=== PATIENT | male | born 1945 | race Hispanic/Latino ===

== ENCOUNTER → 2018-06-23 | Outpatient (CLI) | payer OTHER ==
[~2018-06-23] MED LIST: AMIO200T5 PO; GLIP5TAB11 PO; LISI2.5T2 PO; METF-446 PO; RIVA20TA PO; SIMV20TA6 PO
== END | disposition home or self-care (01) ==
LOC: RAH 13:54
PROVIDERS: ATTEND Internal Medicine Cardiovascular Disease
DX: I70.90 Unspecified atherosclerosis (principal); M47.814 Spondylosis without myelopathy or radiculopathy, thoracic region
CPT/HCPCS: 71250

== ENCOUNTER 2018-09-14 05:58 | Day surgery (SDC) | payer OTHER ==
[2018-09-12 12:20] VITALS: BP 116/86
[2018-09-12 12:28] LABS: BASOPHILS % (AUTO) 0.7 % (0.0-5.0); EOSINOPHILS % (AUTO) 2.8 % (0.0-8.0); HEMATOCRIT 43.5 % (42-54); LYMPHOCYTES % (AUTO) 26.4 % (21.0-51.0); MEAN CORPUSCULAR HEMOGLOBIN 31.1 pg (27.0-33.0); MEAN CORPUSCULAR HGB CONC 34.1 g/dL (32.0-36.0); MONOCYTES % (AUTO) 6.4 % (3.0-13.0); NEUTROPHILS % (AUTO) 63.7 % (40.0-77.0); PLATELET COUNT (AUTO) 165 K/uL (130-400); RED BLOOD CELL COUNT(AUTO) 4.77 MIL/uL (4.50-6.20); RED CELL DISTRIBUTION WIDTH 13.6 % (11.0-15.5); WHITE BLOOD COUNT (AUTO) 6.8 K/uL (4.8-10.8)
[2018-09-12 12:37] LABS: CREATININE 1.4 mg/dL (0.5-1.5); POTASSIUM 4.7 mmol/L (3.5-5.1)
[2018-09-12 12:40] LABS: INR 1.15 (0.85-1.15); PARTIAL THROMBOPLASTIN TIME 33.7 SEC (26.3-35.5)
--- NOTE | 2018-09-13 11:27 | NUR ---
LABS LABS FAXED TO DR. PENA'S OFFICE PER EL REQUEST FOR HIM TO REVIEW BUN /CREA. WILL CALL BACK IF ANY FURTHER ORDERS.
--- NOTE | 2018-09-13 13:06 | NUR ---
LABS RECEIVED CALL BACK FOR ABNORMAL LABS REPORTED. PER DR. JEAN WILLOUGHBY TO PROCEED WITH PROCEDURE.
[2018-09-14] VITALS (9 sets, daily range): BP systolic 86–114; BP diastolic 49–67
[~2018-09-14] VITALS: Ht 177.8 cm; Wt 110.3 kg
[~2018-09-14 05:58] MED LIST changes: -AMIO200T5 PO; +DILT180C51 PO; +FURO20TA4 PO; +POTA10TA14 PO; +ROSU10TA28 PO; -SIMV20TA6 PO; +SODIUM CHLORIDE 0.9% 1000ML 1,000 ML IV SCH; +UMEC1DIS IH
[2018-09-14] MEDS ORDERED: HEPARIN SODIUM 1000UNIT/ML 10ML VIAL ONE (07:54)
[2018-09-14] MEDS ORDERED: LIDOCAINE HCL 2% 20ML ONE ×2 (07:54→08:29)
[2018-09-14] MEDS ORDERED: MEPERIDINE-PF 25 MG/ML SYG ONE ×2 (08:22→09:23)
[2018-09-14] MEDS ORDERED: MIDAZOLAM HCL 1 MG/ML 2ML VIAL ONE ×2 (08:22→09:23)
[2018-09-14] MEDS ORDERED: APIXABAN 5 MG TABLET PO SCH (14:00)
== END 2018-09-14 14:10 | disposition home or self-care (01) ==
LOC: DAH 05:58
PROVIDERS: ATTEND Internal Medicine Cardiovascular Disease
DX: I48.3 Typical atrial flutter (principal); I48.0 Paroxysmal atrial fibrillation; I50.32 Chronic diastolic (congestive) heart failure; E11.9 Type 2 diabetes mellitus without complications; E78.5 Hyperlipidemia, unspecified; Z79.01 Long term (current) use of anticoagulants; Z79.84 Long term (current) use of oral hypoglycemic drugs; Z98.890 Other specified postprocedural states; Z79.899 Other long term (current) drug therapy; Z87.891 Personal history of nicotine dependence; Z82.49 Family history of ischemic heart disease and other diseases of the circulatory system; Z83.3 Family history of diabetes mellitus
CPT/HCPCS: 36415; 80048; 82948 ×2; 85025; 85610; 85730; 93005 ×2; 93613; 93621; 93653; A4606; A4649; C1730 ×2; C1732; C1894 ×2; J1644 ×2; J2175 ×2; J2250 ×2; J3490 ×2; J7030; 99156; 99157

== ENCOUNTER 2018-10-19 06:59 | Day surgery (SDC) | payer OTHER ==
[2018-10-16 16:15] LABS: BASOPHILS % (AUTO) 0.8 % (0.0-5.0); EOSINOPHILS % (AUTO) 2.5 % (0.0-8.0); HEMATOCRIT 43.6 % (42-54); LYMPHOCYTES % (AUTO) 22.6 % (21.0-51.0); MEAN CORPUSCULAR HEMOGLOBIN 30.8 pg (27.0-33.0); MEAN CORPUSCULAR HGB CONC 33.9 g/dL (32.0-36.0); MEAN CORPUSCULAR VOLUME 90.9 fL (79-99); MONOCYTES % (AUTO) 6.3 % (3.0-13.0); NEUTROPHILS % (AUTO) 67.8 % (40.0-77.0); PLATELET COUNT (AUTO) 179 K/uL (130-400); RED BLOOD CELL COUNT(AUTO) 4.79 MIL/uL (4.50-6.20); RED CELL DISTRIBUTION WIDTH 13.2 % (11.0-15.5); WHITE BLOOD COUNT (AUTO) 7.7 K/uL (4.8-10.8)
[2018-10-16 16:34] VITALS: BP 126/70
[2018-10-16 16:40] LABS: INR 1.27 (0.85-1.15); PARTIAL THROMBOPLASTIN TIME 39.1 SEC (26.3-35.5); PROTHROMBIN TIME 13.3 SEC (9.6-11.6)
[2018-10-16 16:41] LABS: CREATININE 1.6 mg/dL (0.5-1.5); POTASSIUM 4.5 mmol/L (3.5-5.1)
--- NOTE | 2018-10-18 11:25 | NUR ---
LABS INFORMED DR. PENA OF ABNORMAL PT/PTT. NO ORDERS RECEIVED. PROCEED WITH PLANNED PROCEDURE.
[~2018-10-19] VITALS: Ht 176.5 cm; Wt 109.2 kg
[~2018-10-19 06:59] MED LIST changes: +DRON400T2 PO
--- NOTE | 2018-10-19 07:59 | NUR ---
MORNING EKG SHOWN TO DR. PENA, PER MD PT IN SINUS RHYTHM NO NEED FOR CARDIOVERSION, PROCEDURE CANCELLED. PT TO FOLLOW UP WITHIN 2 WEEKS.
== END 2018-10-19 08:02 | disposition home or self-care (01) ==
LOC: DAH 06:59
PROVIDERS: ATTEND Internal Medicine Cardiovascular Disease
DX: I48.1 Persistent atrial fibrillation (principal); Z53.8 Procedure and treatment not carried out for other reasons; I50.32 Chronic diastolic (congestive) heart failure; E11.9 Type 2 diabetes mellitus without complications; E78.5 Hyperlipidemia, unspecified; Z79.899 Other long term (current) drug therapy; Z79.01 Long term (current) use of anticoagulants; Z79.84 Long term (current) use of oral hypoglycemic drugs; Z98.890 Other specified postprocedural states; Z83.3 Family history of diabetes mellitus; Z82.49 Family history of ischemic heart disease and other diseases of the circulatory system
CPT/HCPCS: 36245; 36415; 80048; 82948; 85025; 85610; 85730; 93005

== ENCOUNTER → 2022-03-23 | Outpatient (CLI) | payer OTHER ==
[~2022-03-23] MED LIST changes: -DRON400T2 PO; +DRON400T7 PO; +LISI2.5T13 PO; -LISI2.5T2 PO; -SODIUM CHLORIDE 0.9% 1000ML 1,000 ML IV SCH
== END | disposition home or self-care (01) ==
LOC: SHCH 13:26
PROVIDERS: ATTEND Internal Medicine Cardiovascular Disease
DX: I11.9 Hypertensive heart disease without heart failure (principal); I48.0 Paroxysmal atrial fibrillation; E78.5 Hyperlipidemia, unspecified
CPT/HCPCS: 93306

== ENCOUNTER → 2023-09-09 | Outpatient (CLI) | payer OTHER ==
[~2023-09-09] MED LIST changes: -GLIP5TAB11 PO; +GLIP5TAB15 PO; -ROSU10TA28 PO; +ROSU10TA72 PO
== END | disposition home or self-care (01) ==
LOC: RAH 13:11
PROVIDERS: ATTEND Internal Medicine Cardiovascular Disease
DX: I34.0 Nonrheumatic mitral (valve) insufficiency (principal); I31.39 Other pericardial effusion (noninflammatory); I48.0 Paroxysmal atrial fibrillation
CPT/HCPCS: 93306

== ENCOUNTER 2023-11-03 09:39 | Day surgery (SDC) | payer OTHER ==
[2023-10-27 15:07] LABS: BASOPHILS # (AUTO) 0.05 K/uL (0.00-0.20); BASOPHILS % (AUTO) 0.6 % (0.0-5.0); EOSINOPHILS # (AUTO) 0.22 K/uL (0.00-0.70); EOSINOPHILS % (AUTO) 2.7 % (0.0-8.0); HEMATOCRIT 50.8 % (42-54); IMMATURE GRANULOCYTE ABSOLUTE 0.02 K/uL (0-1); MEAN CORPUSCULAR HEMOGLOBIN 30.1 pg (27.0-33.0); MEAN CORPUSCULAR HGB CONC 32.9 g/dL (32.0-36.0); MEAN CORPUSCULAR VOLUME 91.5 fL (79-99); MONOCYTES # (AUTO) 0.5 K/uL (0.1-1.0); MONOCYTES % (AUTO) 6.5 % (3.0-13.0); NEUTROPHILS # (AUTO) 5.3 K/uL (1.8-7.7); PLATELET COUNT (AUTO) 158 K/uL (130-400); RED BLOOD CELL COUNT(AUTO) 5.55 MIL/uL (4.50-6.20); RED CELL DISTRIBUTION WIDTH 13.2 % (11.0-15.5); WHITE BLOOD COUNT (AUTO) 8.1 K/uL (4.8-10.8)
[2023-10-27 15:22] LABS: CREATININE 1.5 mg/dL (0.5-1.3); POTASSIUM 4.3 mmol/L (3.5-5.1)
[2023-10-27 15:45] VITALS: BP 112/72; PULSE 75; RESP 18; TEMP 98.2
[~2023-11-03] VITALS: Ht 175.3 cm; Wt 107.8 kg
[2023-11-03] VITALS (12 sets, daily range): BP systolic 102–132; BP diastolic 61–83; PULSE 73–114; RESP 7–16; TEMP 97.5–97.9
[~2023-11-03 09:39] MED LIST changes: +BUDE10.2 IH; +DAPA10TA PO; -DILT180C51 PO; -DRON400T7 PO; +FENTanyl CITRate PF 50 MCG/1 ML 2ML VIAL ONE; -FURO20TA4 PO; +GLIP10TA9 PO; -GLIP5TAB15 PO; +HEParin 10,000 UNIT/10ML (1,000 UNIT/ML) VIAL ONE; +HEParin-NS 1,000 UNIT/500 ML 1,000 ML IV ONE; +HEParin-NS 1,000 UNIT/500 ML 500 ML IV ONE; +IODIXANOL 320 MG/ML 100 ML VIAL ONE; +LIDOCAINE HCL 400MG/20ML VIAL ONE; -LISI2.5T13 PO; +LOSA25TA41 PO; +METF-444 PO; -METF-446 PO; +MIDAZOLAM HCL 1 MG/ML 2ML VIAL ONE; +NITROGLYCERIN 50MG VIAL ONE; -POTA10TA14 PO; -ROSU10TA72 PO; +ROSU20TA73 PO; +SEMA1PEN3 SQ; +SERT-438 PO; +SOTA120T PO; -UMEC1DIS IH; +VITAMIN D PO
[2023-11-03] MEDS ORDERED: LIDOCAINE PF 100MG/5ML (2%) SYRINGE 5ML ONE (12:12)
[2023-11-03] MEDS ORDERED: proPOFol 10 MG/ML 20ML VIAL IV ONE ×2 (12:12→15:45)
== END 2023-11-03 16:45 | disposition home or self-care (01) ==
LOC: DAH 09:39
PROVIDERS: ATTEND Internal Medicine Cardiovascular Disease
DX: I48.19 Other persistent atrial fibrillation (principal); I45.10 Unspecified right bundle-branch block; J44.9 Chronic obstructive pulmonary disease, unspecified; I50.32 Chronic diastolic (congestive) heart failure; E78.5 Hyperlipidemia, unspecified; E11.9 Type 2 diabetes mellitus without complications; G47.30 Sleep apnea, unspecified; Z99.89 Dependence on other enabling machines and devices; Z79.84 Long term (current) use of oral hypoglycemic drugs; Z87.891 Personal history of nicotine dependence; Z79.01 Long term (current) use of anticoagulants; Z79.899 Other long term (current) drug therapy
CPT/HCPCS: 80048; 85025; 36415; 92960; 82948 ×2; 93005 ×2; J3010; J3490 ×2; J1644 ×3; J2250 ×2; Q9967; J2001; J2704; A4620; A4215; A4222; A4221; A4663; A4216; A4606; A4223 ×3

== ENCOUNTER → 2023-12-08 | Outpatient (CLI) | payer OTHER ==
[~2023-12-08] MED LIST changes: -FENTanyl CITRate PF 50 MCG/1 ML 2ML VIAL ONE; +GLIP10TA16 PO; -GLIP10TA9 PO; -HEParin 10,000 UNIT/10ML (1,000 UNIT/ML) VIAL ONE; -HEParin-NS 1,000 UNIT/500 ML 1,000 ML IV ONE; -HEParin-NS 1,000 UNIT/500 ML 500 ML IV ONE; -IODIXANOL 320 MG/ML 100 ML VIAL ONE; -LIDOCAINE HCL 400MG/20ML VIAL ONE; -MIDAZOLAM HCL 1 MG/ML 2ML VIAL ONE; -NITROGLYCERIN 50MG VIAL ONE; -ROSU20TA73 PO; +ROSU20TA98 PO
[2023-12-08 16:34] LABS: CREATININE 1.3 mg/dL (0.5-1.3); POTASSIUM 4.2 mmol/L (3.5-5.1)
== END | disposition home or self-care (01) ==
LOC: LAB 12:41
PROVIDERS: ATTEND Internal Medicine Cardiovascular Disease
DX: I48.19 Other persistent atrial fibrillation (principal)
CPT/HCPCS: 36415; 80048

== ENCOUNTER → 2023-12-15 | Outpatient (CLI) | payer OTHER ==
[~2023-12-15] MED LIST changes: +IOHEXOL 350 MG/ML 100ML INFUS..BTL IV ONE; +IOHEXOL-350 75 ML VIAL IV ONE
== END | disposition home or self-care (01) ==
LOC: RAH 09:41
PROVIDERS: ATTEND Student in an Organized Health Care Education/Training Program
DX: K44.9 Diaphragmatic hernia without obstruction or gangrene (principal); I48.19 Other persistent atrial fibrillation; J84.10 Pulmonary fibrosis, unspecified; I25.10 Atherosclerotic heart disease of native coronary artery without angina pectoris; I51.7 Cardiomegaly; M47.814 Spondylosis without myelopathy or radiculopathy, thoracic region
CPT/HCPCS: 71275; Q9967

== ENCOUNTER → 2023-12-20 | Outpatient (CLI) | payer OTHER ==
[~2023-12-20] MED LIST changes: -IOHEXOL 350 MG/ML 100ML INFUS..BTL IV ONE; -IOHEXOL-350 75 ML VIAL IV ONE
[2023-12-20 16:32] LABS: CREATININE 1.3 mg/dL (0.5-1.3); POTASSIUM 4.4 mmol/L (3.5-5.1)
== END | disposition home or self-care (01) ==
LOC: LAB 14:58
PROVIDERS: ATTEND Student in an Organized Health Care Education/Training Program
DX: I48.19 Other persistent atrial fibrillation (principal)
CPT/HCPCS: 36415; 80048

== ENCOUNTER 2024-01-05 05:50 | Observation (INO) | payer OTHER ==
[2024-01-03 11:07] LABS: BASOPHILS # (AUTO) 0.05 K/uL (0.00-0.20); BASOPHILS % (AUTO) 0.6 % (0.0-5.0); EOSINOPHILS # (AUTO) 0.22 K/uL (0.00-0.70); EOSINOPHILS % (AUTO) 2.7 % (0.0-8.0); HEMATOCRIT 51.9 % (42-54); IMMATURE GRANULOCYTE ABSOLUTE 0.03 K/uL (0-1); LYMPHOCYTES # (AUTO) 1.7 K/uL (1.0-4.8); LYMPHOCYTES % (AUTO) 20.5 % (21.0-51.0); MEAN CORPUSCULAR HEMOGLOBIN 30.6 pg (27.0-33.0); MEAN CORPUSCULAR HGB CONC 33.3 g/dL (32.0-36.0); MEAN CORPUSCULAR VOLUME 91.7 fL (79-99); MONOCYTES # (AUTO) 0.5 K/uL (0.1-1.0); MONOCYTES % (AUTO) 6.7 % (3.0-13.0); NEUTROPHILS # (AUTO) 5.6 K/uL (1.8-7.7); NEUTROPHILS % (AUTO) 69.1 % (40.0-77.0); PLATELET COUNT (AUTO) 193 K/uL (130-400); RED BLOOD CELL COUNT(AUTO) 5.66 MIL/uL (4.50-6.20); RED CELL DISTRIBUTION WIDTH 13.1 % (11.0-15.5); WHITE BLOOD COUNT (AUTO) 8.1 K/uL (4.8-10.8)
[2024-01-03 11:17] LABS: INR 1.26 (0.85-1.15); PROTHROMBIN TIME 13.4 SEC (9.6-11.6)
[2024-01-03 11:18] LABS: PARTIAL THROMBOPLASTIN TIME 33.4 SEC (26.3-35.5)
[2024-01-03 11:22] VITALS: BP 125/83; PULSE 65; RESP 18; TEMP 97.3
--- NOTE | 2024-01-03 11:24 | EKG ---
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
[2024-01-03 11:39] LABS: CREATININE 1.6 mg/dL (0.5-1.3); POTASSIUM 4.3 mmol/L (3.5-5.1)
[2024-01-05] VITALS (21 sets, daily range): BP systolic 88–121; BP diastolic 51–86; PULSE 70–97; RESP 15–20; TEMP 96.3–99; O2SAT 93–95
[~2024-01-05] VITALS: Ht 175.3 cm; Wt 107.0 kg
[~2024-01-05 05:50] MED LIST changes: +CHOL100040 PO; -DAPA10TA PO; +EMPA10TA PO; -LOSA25TA41 PO; +METO50TA18 PO; -SOTA120T PO; -VITAMIN D PO
[2024-01-05] MEDS: 0.9%NACL 1000ML 1,000 ML IV ONE (06:48)
[2024-01-05] MEDS ORDERED: MIDAZOLAM HCL 1 MG/ML 2ML VIAL ONE (06:52)
[2024-01-05] MEDS ORDERED: proPOFol 10 MG/ML 20ML VIAL IV ONE (06:53)
[2024-01-05] MEDS ORDERED: FENTanyl CITRate PF 50 MCG/1 ML 2ML VIAL ONE ×2 (06:53→07:12)
[2024-01-05] MEDS ORDERED: rocuRONium bROMide 10MG/1ML 5ML VL ONE ×2 (06:53→08:15)
[2024-01-05] MEDS ORDERED: HEParin-NS 1,000 UNIT/500 ML 1,500 ML IV ONE (07:10)
[2024-01-05] MEDS ORDERED: LIDOCAINE HCL 400MG/20ML VIAL ONE ×2 (07:10→07:40)
[2024-01-05] MEDS ORDERED: HEParin 10,000 UNIT/10ML (1,000 UNIT/ML) VIAL ONE (07:10)
[2024-01-05] MEDS ORDERED: phenylEPHRINE HCL 10 MG/ML 1ML VIAL IV ONE ×2 (07:11→09:43)
[2024-01-05] MEDS ORDERED: HEParin-NS 1,000 UNIT/500 ML 500 ML IV ONE (07:40)
[2024-01-05] MEDS ORDERED: PROTamine SULFate 10 MG/ML 25ML VIAL IV ONE (10:37)
[2024-01-05] MEDS ORDERED: NEOSTIGMINE METHYLSULFATE 1MG/ML IV ONE (10:53)
[2024-01-05] MEDS ORDERED: GLYCOPYRROLATE 0.2 MG/ML 5 ML VIAL ONE (10:53)
[2024-01-05] MEDS ORDERED: acetaMINOPHEN 325 MG TAB PO PRN (11:00)
[2024-01-05] MEDS: SUCRALFATE 1 GM/10 ML PO SCH (13:46)
[2024-01-05] MEDS: PANTOPrazole 40 MG TAB DR PO ONE (13:46)
[2024-01-05] MEDS: INSULIN humuLIN R 100 UNIT/ML 3ML SQ SCH (18:50)
[2024-01-05] MEDS: metoPROLOL tartRATE 50 MG TAB PO SCH (21:00)
[2024-01-05] MEDS: SERTraline HCL 50 MG TABLET PO SCH (21:35)
[2024-01-05] MEDS: atorVAStatin 40 MG TABLET PO SCH (21:42)
[2024-01-06 00:02] VITALS: BP 102/62; PULSE 89; RESP 17; TEMP 99.3
[2024-01-06 03:57] VITALS: BP 126/69; PULSE 91; RESP 20; TEMP 99.1
[2024-01-06 08:00] VITALS: O2SAT 93
[2024-01-06] MEDS ORDERED: PANT40TA55 PO (08:09)
[2024-01-06] MEDS ORDERED: SUCR1TAB28 PO (08:10)
[2024-01-06 08:18] VITALS: BP 91/52; PULSE 90; RESP 16; TEMP 98.2
[2024-01-06] MEDS: Cholecalciferol (Vitamin D3) 25 MCG PO SCH (08:35)
[2024-01-06] MEDS: PANTOPrazole 40 MG TAB DR PO SCH (09:37)
[2024-01-06] MEDS: RIVAROXABAN 20 MG TABLET PO SCH (09:37)
== END 2024-01-06 10:35 | disposition home or self-care (01) ==
LOC: DAH 05:50 → DAHIP 05:51 → DAH 05:51 → 2AH 12:32
PROVIDERS: ADMIT Internal Medicine Cardiovascular Disease; ATTEND Internal Medicine Cardiovascular Disease
DX: I48.19 Other persistent atrial fibrillation (principal); J44.9 Chronic obstructive pulmonary disease, unspecified; I10 Essential (primary) hypertension; E66.01 Morbid (severe) obesity due to excess calories; Z68.34 Body mass index [BMI] 34.0-34.9, adult; Z79.899 Other long term (current) drug therapy; Z87.891 Personal history of nicotine dependence
CPT/HCPCS: 80048; 85025; 85610; 85730; 36415 ×2; 93005; 93656; 85347 ×4; 82948 ×5; J1815; C1894 ×3; C1732 ×3; A4649 ×2; C1766; J3010 ×2; J3490 ×5; J7030; J1644 ×3; J2250; J2704; J2710; J2371 ×2; A4215; A4222; A4221; A4663; A4216; G0378; J2720; A4223 ×3

== ENCOUNTER → 2024-11-13 | Outpatient (CLI) | payer OTHER ==
[~2024-11-13] MED LIST changes: +PANT40TA55 PO; +SUCR1TAB28 PO
--- NOTE | 2024-11-13 17:52 | HMCIMG ---
EXAM: US Retroperitoneum Complete, Renal. CLINICAL HISTORY: Microscopic hematuria. TECHNIQUE: Real-time ultrasound of the retroperitoneum (complete) with image documentation. COMPARISON: None provided. FINDINGS: RIGHT KIDNEY: Measures 12.4 x 6.2 x 5.7 cm. Normal cortical echogenicity and corticomedullary differentiation. No hydronephrosis, renal stone, or mass visualized. No hydronephrosis, solid mass, or renal calculi identified. LEFT KIDNEY: Measures 12.1 x 6.3 x 7.0 cm. Normal cortical echogenicity and corticomedullary differentiation. Lower pole simple cyst measuring 1.8 x 1.9 x 1.5 cm. No hydronephrosis, renal stone, or mass visualized. No hydronephrosis, solid mass, or renal calculi identified. BLADDER: Wall thickness 2 mm. The bladder was not fully distended, which limits evaluation. No focal bladder wall lesion or intraluminal mass seen. The urinary bladder evaluation is limited due to incomplete distension. IMPRESSION: 1. No hydronephrosis or renal calculi. 2. Left kidney lower pole simple cyst measuring 1.8 x 1.9 x 1.5 cm. 3. Urinary bladder evaluation limited due to incomplete distension. No focal bladder wall lesion or intraluminal mass seen. /[place]
== END | disposition home or self-care (01) ==
LOC: RAH 12:15
PROVIDERS: ATTEND Student in an Organized Health Care Education/Training Program
DX: N28.1 Cyst of kidney, acquired (principal); R31.29 Other microscopic hematuria
CPT/HCPCS: 76770